=== PATIENT | female | born 1935 | race Caucasian/White ===

== ENCOUNTER → 2017-12-09 | Outpatient (CLI) | payer MEDICARE ==
[~2017-12-09] MED LIST: LOSA1TAB19 PO; LOSA50TA2 PO
== END | disposition home or self-care (01) ==
LOC: PETCFH 09:50
PROVIDERS: ATTEND Internal Medicine Hematology & Oncology
DX: J90 Pleural effusion, not elsewhere classified (principal); I31.3 Pericardial effusion (noninflammatory); I51.7 Cardiomegaly; R59.1 Generalized enlarged lymph nodes; C34.31 Malignant neoplasm of lower lobe, right bronchus or lung
CPT/HCPCS: 78815; A9552

== ENCOUNTER → 2017-12-14 | Outpatient (CLI) | payer MEDICARE ==
[~2017-12-14] MED LIST changes: +LIDOCAINE-MPF 1%, 2ML ONE
== END | disposition home or self-care (01) ==
LOC: RAD 12:33
PROVIDERS: ATTEND Internal Medicine Hematology & Oncology
DX: C34.31 Malignant neoplasm of lower lobe, right bronchus or lung (principal); I08.1 Rheumatic disorders of both mitral and tricuspid valves; I31.3 Pericardial effusion (noninflammatory); J90 Pleural effusion, not elsewhere classified; F17.210 Nicotine dependence, cigarettes, uncomplicated
CPT/HCPCS: 32555; 88112; 88305; 93306; J3490

== ENCOUNTER 2018-01-04 13:05 | Inpatient (IN) | payer MEDICARE ==
[~2018-01-04] VITALS: Ht 162.6 cm; Wt 55.1 kg
[~2018-01-04 13:05] MED LIST changes: -LIDOCAINE-MPF 1%, 2ML ONE
[2018-01-04] MEDS ORDERED: LOSA1TAB2 PO (13:57)
[2018-01-04 14:17] LABS: BASOPHILS # (AUTO) 0.02 x10^3/uL (0-0.1); BASOPHILS % (AUTO) 0 % (0-1); EOSINOPHILS # (AUTO) 0.07 x10^3/uL (0-0.4); EOSINOPHILS % (AUTO) 1 % (1-7); LYMPHOCYTES # (AUTO) 0.78 x10^3/uL (1-3.4); LYMPHOCYTES % (AUTO) 10 % (22-44); MD NO; MEAN CORPUSCULAR HEMOGLOBIN 29.1 pg (27.0-34.8); MEAN CORPUSCULAR HGB CONC 33.6 g/dL (32.4-35.8); MEAN CORPUSCULAR VOLUME 86.6 fL (80-100); MEAN PLATELET VOLUME 7.5 fL (7.4-10.4); MONOCYTES # (AUTO) 0.56 x10^3/uL (0.2-0.8); MONOCYTES % (AUTO) 7 % (2-9); NEUTROPHILS # (AUTO) 6.45 x10^3/uL (1.8-6.8); NEUTROPHILS % (AUTO) 82 % (42-75); PLATELET COUNT 371 x10^3/uL (130-400); RED BLOOD COUNT 5.57 x10^6/uL (3.82-5.3)
[2018-01-04 14:23] LABS: ALBUMIN 3.1 g/dL (3.4-5.0); ANION GAP 6 mmol/L (5-15); CALCIUM 9.5 mg/dL (8.5-10.1); CHLORIDE 94 mmol/L (98-107)
[2018-01-04 14:24] LABS: CREATININE 0.74 mg/dL (0.55-1.02)
[2018-01-04] MEDS ORDERED: ONDANSETRON 2MG/ML, 2ML ONE ×2 (15:19→16:44)
[2018-01-04] MEDS ORDERED: FENTANYL PF 100 MCG/2ML ONE (15:19)
[2018-01-04] MEDS ORDERED: SODIUM CHLORIDE FLUSH 10ML SYR IVF PRN (15:30)
[2018-01-04] MEDS ORDERED: LIDOCAINE-MPF 1%, 2ML ONE (15:33)
[2018-01-04] MEDS ORDERED: ONDANSETRON 2MG/ML, 2ML IVPush ONE (17:00)
[2018-01-04 19:58] VITALS: BP 138/90
[2018-01-04] MEDS ORDERED: OXYcodone IR 5MG TABLET PO PRN (23:30)
[2018-01-05] MEDS ORDERED: POLYETHYLENE GLYCOL 17 GM PACKET PO PRN
[2018-01-05] MEDS ORDERED: ONDANSETRON 2MG/ML, 2ML IVPush PRN
[2018-01-05] MEDS ORDERED: BISACODYL 10 MG SUPP PR PRN
[2018-01-05] MEDS ORDERED: ACETAMINOPHEN 325 MG TABLET PO PRN
[2018-01-05 01:00] VITALS: BP 129/84
[2018-01-05 04:45] LABS: BASOPHILS # (AUTO) 0.02 x10^3/uL (0-0.1); BASOPHILS % (AUTO) 0 % (0-1); EOSINOPHILS # (AUTO) 0.08 x10^3/uL (0-0.4); EOSINOPHILS % (AUTO) 1 % (1-7); LYMPHOCYTES # (AUTO) 0.93 x10^3/uL (1-3.4); LYMPHOCYTES % (AUTO) 12 % (22-44); MD NO; MEAN CORPUSCULAR HEMOGLOBIN 28.8 pg (27.0-34.8); MEAN CORPUSCULAR HGB CONC 33.6 g/dL (32.4-35.8); MEAN CORPUSCULAR VOLUME 85.9 fL (80-100); MEAN PLATELET VOLUME 6.7 fL (7.4-10.4); MONOCYTES # (AUTO) 0.82 x10^3/uL (0.2-0.8); MONOCYTES % (AUTO) 11 % (2-9); NEUTROPHILS # (AUTO) 5.66 x10^3/uL (1.8-6.8); NEUTROPHILS % (AUTO) 75 % (42-75); PLATELET COUNT 340 x10^3/uL (130-400); RED BLOOD COUNT 4.88 x10^6/uL (3.82-5.3); RED CELL DISTRIBUTION WIDTH 14.6 % (9.6-15.2)
[2018-01-05 04:53] LABS: ALBUMIN 2.3 g/dL (3.4-5.0); ANION GAP 5 mmol/L (5-15); CALCIUM 8.7 mg/dL (8.5-10.1); CHLORIDE 98 mmol/L (98-107)
[2018-01-05 04:59] LABS: ALANINE AMINOTRANSFERASE 24 U/L (12-78); ALKALINE PHOSPHATASE 96 U/L (45-117); BILIRUBIN,TOTAL 0.5 mg/dL (0.2-1.0); CREATININE 0.65 mg/dL (0.55-1.02); TOTAL PROTEIN 6.2 g/dL (6.4-8.2)
[2018-01-05 08:05] VITALS: BP 123/74
[2018-01-05] MEDS: SODIUM CHLORIDE FLUSH 10ML SYR IVF SCH ×3 (08:42→21:14)
[2018-01-05] MEDS: HEPARIN 5,000 UNITS/ML, 1ML SQ SCH ×4 (08:42→16:41)
[2018-01-05] MEDS: LOSARTAN 25MG TABLET PO SCH ×3 (08:43→21:13)
[2018-01-05] MEDS: SENNA/DOCUSATE TABLET PO SCH (08:43)
[2018-01-05] MEDS ORDERED: LOSARTAN 50MG TABLET PO SCH (09:00)
[2018-01-05] MEDS ORDERED: HYDROCHLOROTHIAZIDE 12.5 MG CAPSULE PO SCH (09:00)
[2018-01-05] MEDS: NICOTINE 14MG/24 HR PATCH.TD24 TD SCH (10:26)
[2018-01-05 14:46] VITALS: BP 122/79
[2018-01-05 19:01] VITALS: BP 118/72
[2018-01-06] MEDS: HEPARIN 5,000 UNITS/ML, 1ML SQ SCH ×3 (04:16→22:09)
[2018-01-06 04:27] VITALS: BP 110/68
[2018-01-06 04:45] LABS: BASOPHILS # (AUTO) 0.03 x10^3/uL (0-0.1); BASOPHILS % (AUTO) 1 % (0-1); EOSINOPHILS # (AUTO) 0.11 x10^3/uL (0-0.4); EOSINOPHILS % (AUTO) 2 % (1-7); LYMPHOCYTES # (AUTO) 1.25 x10^3/uL (1-3.4); LYMPHOCYTES % (AUTO) 18 % (22-44); MD NO; MEAN CORPUSCULAR HEMOGLOBIN 28.9 pg (27.0-34.8); MEAN CORPUSCULAR HGB CONC 33.6 g/dL (32.4-35.8); MEAN CORPUSCULAR VOLUME 85.9 fL (80-100); MEAN PLATELET VOLUME 7.1 fL (7.4-10.4); MONOCYTES % (AUTO) 9 % (2-9); NEUTROPHILS # (AUTO) 4.84 x10^3/uL (1.8-6.8); NEUTROPHILS % (AUTO) 71 % (42-75); PLATELET COUNT 354 x10^3/uL (130-400); RED BLOOD COUNT 4.97 x10^6/uL (3.82-5.3); RED CELL DISTRIBUTION WIDTH 14.8 % (9.6-15.2)
[2018-01-06 04:54] LABS: ANION GAP 5 mmol/L (5-15); CALCIUM 8.7 mg/dL (8.5-10.1); CHLORIDE 99 mmol/L (98-107); CREATININE 0.55 mg/dL (0.55-1.02)
[2018-01-06 07:45] VITALS: BP 134/72
[2018-01-06] MEDS ORDERED: DOXYCYCLINE 500 MG in SODIUM CHLORIDE 0.9% 50 ML INTRAPL ONE (08:07)
[2018-01-06] MEDS: NICOTINE 14MG/24 HR PATCH.TD24 TD SCH (09:22)
[2018-01-06] MEDS: SENNA/DOCUSATE TABLET PO SCH (09:22)
[2018-01-06] MEDS: LOSARTAN 25MG TABLET PO SCH ×2 (09:22→21:16)
[2018-01-06] MEDS: SODIUM CHLORIDE FLUSH 10ML SYR IVF SCH ×2 (09:24→21:16)
[2018-01-06] MEDS ORDERED: MORPHINE SULFATE 4 MG/ML, 1ML ONE (09:43)
[2018-01-06] MEDS ORDERED: MORPHINE SULFATE 4 MG/ML, 1ML IV PRN (10:00)
[2018-01-06 14:05] VITALS: BP 131/76
[2018-01-06 20:32] VITALS: BP 121/63
[2018-01-07 03:18] VITALS: BP 111/72
[2018-01-07] MEDS: HEPARIN 5,000 UNITS/ML, 1ML SQ SCH ×3 (05:56→21:37)
[2018-01-07 07:02] VITALS: BP 146/72
[2018-01-07] MEDS: SENNA/DOCUSATE TABLET PO SCH (08:17)
[2018-01-07] MEDS: LOSARTAN 25MG TABLET PO SCH ×2 (08:17→21:36)
[2018-01-07] MEDS: SODIUM CHLORIDE FLUSH 10ML SYR IVF SCH ×2 (08:18→21:36)
[2018-01-07] MEDS: NICOTINE 14MG/24 HR PATCH.TD24 TD SCH (09:21)
[2018-01-07 14:14] VITALS: BP 134/75
[2018-01-07 20:54] VITALS: BP 123/66
[2018-01-08 00:52] VITALS: BP 127/76
[2018-01-08 01:35] VITALS: BP 127/76
[2018-01-08] MEDS: HEPARIN 5,000 UNITS/ML, 1ML SQ SCH ×3 (05:51→22:00)
[2018-01-08] MEDS: NICOTINE 14MG/24 HR PATCH.TD24 TD SCH (07:58)
[2018-01-08] MEDS: SODIUM CHLORIDE FLUSH 10ML SYR IVF SCH ×2 (07:58→22:01)
[2018-01-08] MEDS: SENNA/DOCUSATE TABLET PO SCH (07:58)
[2018-01-08] MEDS: LOSARTAN 25MG TABLET PO SCH ×2 (07:58→21:59)
[2018-01-08 11:37] VITALS: BP 126/75
[2018-01-08 14:42] VITALS: BP 119/76
[2018-01-08 18:26] VITALS: BP 121/80
[2018-01-09 02:12] VITALS: BP 147/86
[2018-01-09 04:52] LABS: ANION GAP 4 mmol/L (5-15); CALCIUM 8.4 mg/dL (8.5-10.1); CHLORIDE 101 mmol/L (98-107); CREATININE 0.52 mg/dL (0.55-1.02)
[2018-01-09] MEDS: HEPARIN 5,000 UNITS/ML, 1ML SQ SCH (05:50)
[2018-01-09 06:48] VITALS: BP 125/74
[2018-01-09 06:54] VITALS: BP 98/61
[2018-01-09] MEDS: LOSARTAN 25MG TABLET PO SCH (09:43)
[2018-01-09] MEDS: NICOTINE 14MG/24 HR PATCH.TD24 TD SCH (09:43)
[2018-01-09] MEDS: SENNA/DOCUSATE TABLET PO SCH ×2 (09:43→09:44)
[2018-01-09] MEDS: SODIUM CHLORIDE FLUSH 10ML SYR IVF SCH (09:43)
[2018-01-09 09:52] VITALS: BP 129/73
== END 2018-01-09 12:48 | disposition home or self-care (01) | DRG 180 ==
LOC: ED 14:31 → EDIP 15:08 → 3NW 18:36
PROVIDERS: ADMIT Internal Medicine; ATTEND Internal Medicine
PROC: 0W9930Z Drainage of Right Pleural Cavity with Drainage Device, Percutaneous Approach (ICD-10-PCS; principal; 2018-01-04)
PROC: 3E0L3GC Introduction of Other Therapeutic Substance into Pleural Cavity, Percutaneous Approach (ICD-10-PCS; 2018-01-04)
DX: C34.90 Malignant neoplasm of unspecified part of unspecified bronchus or lung (principal); J96.21 Acute and chronic respiratory failure with hypoxia; J91.0 Malignant pleural effusion; E87.1 Hypo-osmolality and hyponatremia; E44.0 Moderate protein-calorie malnutrition; Z88.6 Allergy status to analgesic agent; F17.210 Nicotine dependence, cigarettes, uncomplicated; I11.0 Hypertensive heart disease with heart failure; I50.9 Heart failure, unspecified; Z66 Do not resuscitate; Z82.49 Family history of ischemic heart disease and other diseases of the circulatory system; Z85.118 Personal history of other malignant neoplasm of bronchus and lung; Z99.81 Dependence on supplemental oxygen; Z68.20 Body mass index [BMI] 20.0-20.9, adult
CPT/HCPCS: 32557; 36415; 71045; 71250; 76937; 80048; 80053; 82040; 85025; 93005; J1644; J2405; J3010; J3490; C1729; C1769

== ENCOUNTER → 2018-01-25 | Outpatient (CLI) | payer MEDICARE ==
[~2018-01-25] MED LIST changes: +LOSA1TAB2 PO
== END | disposition home or self-care (01) ==
LOC: CVU 09:05
PROVIDERS: ATTEND Internal Medicine Hematology & Oncology
DX: I07.1 Rheumatic tricuspid insufficiency (principal); I31.3 Pericardial effusion (noninflammatory); J90 Pleural effusion, not elsewhere classified; C34.31 Malignant neoplasm of lower lobe, right bronchus or lung; F17.210 Nicotine dependence, cigarettes, uncomplicated
CPT/HCPCS: 93306

== ENCOUNTER → 2018-03-09 | Outpatient (CLI) | payer MEDICARE ==
[~2018-03-09] MED LIST changes: +OMNIPAQUE 350 MG/ML, 100ML BOTTLE ONE
== END | disposition home or self-care (01) ==
LOC: CFH 13:42
PROVIDERS: ATTEND Internal Medicine Hematology & Oncology
DX: D25.9 Leiomyoma of uterus, unspecified (principal); D73.89 Other diseases of spleen; I70.0 Atherosclerosis of aorta; K76.0 Fatty (change of) liver, not elsewhere classified; J90 Pleural effusion, not elsewhere classified; F17.200 Nicotine dependence, unspecified, uncomplicated; R91.8 Other nonspecific abnormal finding of lung field; R59.0 Localized enlarged lymph nodes; C34.31 Malignant neoplasm of lower lobe, right bronchus or lung
CPT/HCPCS: 71260; 74177; Q9967

== ENCOUNTER 2018-08-31 19:06 | Emergency (ER) | payer MEDICARE ==
[~2018-08-31] VITALS: Ht 162.6 cm; Wt 55.0 kg
[~2018-08-31 19:06] MED LIST changes: -OMNIPAQUE 350 MG/ML, 100ML BOTTLE ONE
--- NOTE | 2018-08-31 19:14 | NUR ---
HOSPICE STAFF AT BEDSIDE, PT IS ON HOSPICE AT HOME FOR LUNG CANCER. HOSPICE STAFF: CAM-[phone] PTS DAUGHTER: ARA WHITE- [phone]
--- NOTE | 2018-08-31 19:35 | NUR ---
ASSUME CARE, AWAITING RADIOLOGY REPORT
--- NOTE | 2018-08-31 19:56 | NUR ---
PT BACK FROM CT
[2018-08-31] MEDS ORDERED: ACETAMINOPHEN 325 MG TABLET ONE (21:04)
[2018-08-31 21:10] VITALS: BP 150/77
[2018-08-31] MEDS ORDERED: ACETAMINOPHEN 325 MG TABLET PO ONE (21:30)
== END 2018-08-31 21:13 | disposition home or self-care (01) ==
LOC: ED 21:11
DX: S42.211A Unspecified displaced fracture of surgical neck of right humerus, initial encounter for closed fracture (principal); I10 Essential (primary) hypertension; W01.0XXA Fall on same level from slipping, tripping and stumbling without subsequent striking against object, initial encounter; Y93.89 Activity, other specified; Y92.89 Other specified places as the place of occurrence of the external cause; Y99.8 Other external cause status
CPT/HCPCS: 29105; 70450; 96361; 99284

== ENCOUNTER 2018-09-18 09:16 | Inpatient (IN) | payer MEDICARE ==
[~2018-09-18] VITALS: Ht 165.1 cm; Wt 48.0 kg
[2018-09-18 04:00] VITALS: BP 124/72
--- NOTE | 2018-09-18 09:23 | NUR ---
83 YR OLD FEMALE ARRIVED VIA EMS. 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 PT HAS HAD MULTIPLE FALLS. FALL APPROX 2 WEEKS AGO, RSULTING IN RIGHT ARM FX, NON REPAIRABLE. PTS DAUGHTER WANTED HER TO BE EVALUATED. REPORTED "STONG URINE SMELL AND WEAKNESS" PT DENIES BURNING, FREQUENCY. PT ARRIVED WITH 2LNC IN PLACE, USES HOME O2. PT STATES YEAR "1967, I DONT KNOW" PLACE "TOBI CARTER" REASON FOR BEING SEEN "I HAVE BEEN FALLING" PTS DTR IS ARA [phone].
--- NOTE | 2018-09-18 09:37 | NUR ---
DR YANG AT BEDSIDE TO [facility] PT.
--- NOTE | 2018-09-18 09:56 | NUR ---
PTS DAUGHTER ARA HERE, STATES "I CANT TAKE HER HOME, SHE NEEDS TO BE PLACED" NOTIFIED DR YANG THAT DTR HER. REPORT TO SHILPI GANDHI.
[2018-09-18] MEDS ORDERED: LORA-445 PO (10:04)
[2018-09-18] MEDS ORDERED: SENN8.6T98 PO (10:04)
[2018-09-18] MEDS ORDERED: ACET325T14 PO (10:04)
--- NOTE | 2018-09-18 11:23 | NUR ---
iv established. labs drawn and sent. awaiting results. vss. sw consult in progress. family at bedside. no needs at this time.
[2018-09-18 11:30] LABS: MICROSCOPIC NOT IND
[2018-09-18 11:33] LABS: BASOPHILS # (AUTO) 0.06 x10^3/uL (0-0.1); BASOPHILS % (AUTO) 1 % (0-1); EOSINOPHILS # (AUTO) 0.02 x10^3/uL (0-0.4); EOSINOPHILS % (AUTO) 0 % (1-7); LYMPHOCYTES # (AUTO) 1.48 x10^3/uL (1-3.4); LYMPHOCYTES % (AUTO) 14 % (22-44); MD NO; MEAN CORPUSCULAR HEMOGLOBIN 30.3 pg (27.0-34.8); MEAN CORPUSCULAR HGB CONC 33.6 g/dL (32.4-35.8); MEAN CORPUSCULAR VOLUME 90.4 fL (80-100); MEAN PLATELET VOLUME 7.2 fL (7.4-10.4); MONOCYTES # (AUTO) 0.61 x10^3/uL (0.2-0.8); MONOCYTES % (AUTO) 6 % (2-9); NEUTROPHILS # (AUTO) 8.45 x10^3/uL (1.8-6.8); NEUTROPHILS % (AUTO) 80 % (42-75); PLATELET COUNT 399 x10^3/uL (130-400); RED BLOOD COUNT 4.18 x10^6/uL (3.82-5.3); RED CELL DISTRIBUTION WIDTH 14.3 % (9.6-15.2)
[2018-09-18 11:33] LABS: CULTURE INDICATED? NO
[2018-09-18 11:39] LABS: ANION GAP 8 mmol/L (5-15); CALCIUM 9.4 mg/dL (8.5-10.1); CHLORIDE 92 mmol/L (98-107)
[2018-09-18] MEDS ORDERED: ONDANSETRON ODT 4 MG PO PRN (12:30)
[2018-09-18] MEDS ORDERED: ONDANSETRON 2MG/ML, 2ML IVPush PRN (12:30)
[2018-09-18] MEDS ORDERED: ACETAMINOPHEN 325 MG TABLET PO PRN (12:30)
[2018-09-18] MEDS ORDERED: LORazepam 0.5MG TABLET PO PRN (12:30)
--- NOTE | 2018-09-18 12:43 | NUR ---
pt resting in room with lights dimmed. vss. no needs at this time. awaiting bed assignment.
--- NOTE | 2018-09-18 12:49 | NUR ---
report to [facility]. pt ready for transport.
[2018-09-18 17:32] VITALS: BP 124/72
[2018-09-18] MEDS: SENNOSIDES 8.6 MG TABLET PO SCH (18:04)
[2018-09-18 19:36] VITALS: BP 175/80
[2018-09-18 19:47] VITALS: BP 161/73
[2018-09-18] MEDS ORDERED: HYDROCHLOROTHIAZIDE 12.5 MG CAPSULE PO ONE (21:30)
[2018-09-18] MEDS ORDERED: LOSARTAN 50MG TABLET PO ONE (21:30)
[2018-09-19 00:49] VITALS: BP 128/74
[2018-09-19 07:18] VITALS: BP 135/75
[2018-09-19] MEDS: LOSARTAN 50MG TABLET PO SCH (09:28)
[2018-09-19] MEDS: HYDROCHLOROTHIAZIDE 12.5 MG CAPSULE PO SCH (09:28)
[2018-09-19] MEDS: SENNOSIDES 8.6 MG TABLET PO SCH (09:33)
[2018-09-19 12:30] VITALS: BP 137/78
[2018-09-19] MEDS ORDERED: SILVER SULF. CRM 1% , 25GM TP SCH (14:00)
[2018-09-19 19:38] VITALS: BP 144/79
[2018-09-19] MEDS: SILVER SULF. CRM 1% , 25GM TP SCH (20:13)
[2018-09-20 01:28] VITALS: BP 120/64
[2018-09-20 07:12] VITALS: BP 130/71
[2018-09-20] MEDS: SENNOSIDES 8.6 MG TABLET PO SCH (09:49)
[2018-09-20] MEDS: HYDROCHLOROTHIAZIDE 12.5 MG CAPSULE PO SCH (09:49)
[2018-09-20] MEDS: LOSARTAN 50MG TABLET PO SCH (09:49)
[2018-09-20] MEDS: SILVER SULF. CRM 1% , 25GM TP SCH ×2 (09:50→21:00)
[2018-09-20 12:23] VITALS: BP 105/68
[2018-09-20 19:45] VITALS: BP 117/67
[2018-09-21 01:20] VITALS: BP 113/68
[2018-09-21 07:05] VITALS: BP 118/71
[2018-09-21] MEDS: SILVER SULF. CRM 1% , 25GM TP SCH (09:35)
[2018-09-21] MEDS: LOSARTAN 50MG TABLET PO SCH (09:35)
[2018-09-21] MEDS: SENNOSIDES 8.6 MG TABLET PO SCH (09:35)
[2018-09-21] MEDS: HYDROCHLOROTHIAZIDE 12.5 MG CAPSULE PO SCH (09:35)
[2018-09-21 14:45] VITALS: BP 139/81
== END 2018-09-21 15:15 | DRG 640 ==
LOC: ED 11:06 → EDIP 11:43 → 3NW 13:15
PROVIDERS: ADMIT Hospitalist; ATTEND Hospitalist
DX: E87.1 Hypo-osmolality and hyponatremia (principal); G93.41 Metabolic encephalopathy; C34.90 Malignant neoplasm of unspecified part of unspecified bronchus or lung; C79.31 Secondary malignant neoplasm of brain; E44.0 Moderate protein-calorie malnutrition; Z88.4 Allergy status to anesthetic agent; Z88.5 Allergy status to narcotic agent; W01.0XXA Fall on same level from slipping, tripping and stumbling without subsequent striking against object, initial encounter; Y93.89 Activity, other specified; Y92.89 Other specified places as the place of occurrence of the external cause; Y99.8 Other external cause status; E87.6 Hypokalemia; I10 Essential (primary) hypertension; Z51.5 Encounter for palliative care; Z80.1 Family history of malignant neoplasm of trachea, bronchus and lung; Z87.891 Personal history of nicotine dependence; T24.211A Burn of second degree of right thigh, initial encounter; J44.9 Chronic obstructive pulmonary disease, unspecified; Z66 Do not resuscitate
CPT/HCPCS: 36415; 80048; 81003; 85025; 93005; 99285; G0378